=== PATIENT | female | born 1990 | race Caucasian/White ===

== ENCOUNTER 2019-05-14 20:10 | Observation (INO) | payer OTHER ==
[~2019-05-14 20:10] MED LIST: PNV1TABL54 PO; PREN1TAB22 PO
[2019-05-14 21:33] VITALS: BP 102/58
[2019-05-14 22:45] LABS: GLUCOMETER DEV NAME(LOC) 4S.; GLUCOSE,POINT OF CARE 96 MG/DL (70-110)
== END 2019-05-14 21:30 | disposition home or self-care (01) ==
LOC: 4S 20:10
PROVIDERS: ADMIT Obstetrics & Gynecology; ATTEND Obstetrics & Gynecology
DX: O62.9 Abnormality of forces of labor, unspecified (principal); Z3A.39 39 weeks gestation of pregnancy
CPT/HCPCS: 81002; 82962; G0378

== ENCOUNTER 2019-05-15 16:30 | Inpatient (IN) | payer OTHER ==
[~2019-05-15] VITALS: Ht 163 cm; Wt 76.7 kg
[~2019-05-15 16:30] MED LIST changes: -PREN1TAB22 PO
[2019-05-15] MEDS ORDERED: OXYTOCIN 30 UNITS/LACT RINGERS 500 ML IV PRN (17:30)
[2019-05-15] MEDS ORDERED: CITRIC ACID/SODIUM CITRATE 30 ML SOLUTION UDCUP PO PRN (17:30)
[2019-05-15] MEDS ORDERED: FentaNYL CITRATE-PF 100 MCG/2 ML VIAL IVP PRN (17:30)
[2019-05-15] MEDS ORDERED: RINGERS SOLUTION,LACTATED 1,000 ML IV PRN (17:30)
[2019-05-15] MEDS ORDERED: METOCLOPRAMIDE HCL 5 MG/ML 2 ML VIAL IVP PRN (17:30)
[2019-05-15 18:35] LABS: BASOPHILS % (AUTO) 0.4 % (0.0-2.0); EOSINOPHILS % (AUTO) 1.2 % (1.0-6.0); HEMATOCRIT 34.2 % (36-46); HEMOGLOBIN 11.5 g/dL (12.0-16.0); LYMPHOCYTES # (AUTO) 1.8 K/uL (1.0-4.8); LYMPHOCYTES % (AUTO) 18.3 % (22.0-44.0); MEAN CORPUSCULAR HEMOGLOBIN 31.5 pg (26.0-34.0); MEAN CORPUSCULAR HGB CONC 33.5 G/dL (31.0-37.0); MEAN CORPUSCULAR VOLUME 94 fL (80-100); MONOCYTES # (AUTO) 0.8 K/uL (0.1-1.0); MONOCYTES % (AUTO) 7.7 % (2.0-9.0); NEUTROPHILS # (AUTO) 7.1 K/uL (1.8-7.7); NEUTROPHILS % (AUTO) 72.4 % (40.0-70.0); PLATELET COUNT (AUTO)-OB 291 K/uL (150-450); RED BLOOD CELL COUNT(AUTO) 3.64 MIL/uL (4.00-5.20); RED CELL DISTRIBUTION WIDTH 13.7 % (11.5-14.5)
[2019-05-15] MEDS ORDERED: OXYGEN THERAPY IH SCH (20:00)
[2019-05-15] MEDS: RINGERS SOLUTION,LACTATED 1,000 ML IV SCH (21:03)
[2019-05-16] MEDS: RINGERS SOLUTION,LACTATED 1,000 ML IV SCH (03:00)
[2019-05-16] MEDS ORDERED: CeFAZolin 2 GM/DEXTROSE 50 ML IV ONE (04:30)
[2019-05-16] MEDS ORDERED: BENZOCAINE 20%/MENTHOL 56 GM SPRAY CANISTER TP PRN (04:45)
[2019-05-16] MEDS ORDERED: ACETAMINOPHEN/CODEINE 300-30 MG TABLET PO PRN ×2 (04:45)
[2019-05-16] MEDS ORDERED: LANOLIN 7 GM OINTMENT TP PRN (04:45)
[2019-05-16] MEDS ORDERED: GLYCERIN/WITCH HAZEL LEAF 40 PADS JAR TP PRN (04:45)
[2019-05-16] MEDS ORDERED: ROPIVACAINE HCL/PF 0.2% 100 ML ED PRN (06:45)
[2019-05-16] MEDS ORDERED: NALBUPHINE HCL 10 MG/ML VIAL IVP PRN (06:45)
[2019-05-16] MEDS ORDERED: DiphenhydrAMINE HCL 50 MG/ML VIAL IVP PRN (06:45)
[2019-05-16] MEDS ORDERED: ONDANSETRON HCL 4 MG/2 ML VIAL IVP PRN (06:45)
[2019-05-16] MEDS: IBUPROFEN 800 MG TABLET PO SCH ×3 (07:14→18:44)
[2019-05-16] MEDS: MAGNESIUM HYDROXIDE SUSPENSION 30 ML UDCUP PO SCH ×2 (08:44→21:53)
[2019-05-17] MEDS: IBUPROFEN 800 MG TABLET PO SCH ×2 (01:26→08:24)
[2019-05-17] MEDS: MAGNESIUM HYDROXIDE SUSPENSION 30 ML UDCUP PO SCH (08:24)
[2019-05-17] MEDS ORDERED: SENNA/DOCUSATE SODIUM 8.6-50 MG TABLET PO ONE (09:45)
[2019-05-17] MEDS ORDERED: IBUP-2071 PO (10:07)
== END 2019-05-17 11:55 | disposition home or self-care (01) | DRG 807 ==
LOC: 4S 16:30 → OBSVTOIN 16:30
PROVIDERS: ADMIT Obstetrics & Gynecology; ATTEND Obstetrics & Gynecology
PROC: 0W8NXZZ Division of Female Perineum, External Approach (ICD-10-PCS; principal; 2019-05-16)
PROC: 10E0XZZ Delivery of Products of Conception, External Approach (ICD-10-PCS; 2019-05-16)
PROC: 3E0R3BZ Introduction of Anesthetic Agent into Spinal Canal, Percutaneous Approach (ICD-10-PCS; 2019-05-16)
PROC: 00HU33Z Insertion of Infusion Device into Spinal Canal, Percutaneous Approach (ICD-10-PCS; 2019-05-16)
DX: O80 Encounter for full-term uncomplicated delivery (principal); Z37.0 Single live birth; Z3A.39 39 weeks gestation of pregnancy
CPT/HCPCS: 86850; 86900; 86901; J0690; J2590; J7120